=== PATIENT | male | born 1985 | race Caucasian/White ===

== ENCOUNTER 2023-03-19 12:17 | Outpatient (CLI) | payer BC, SELFPAY ==
--- NOTE | ~2023-03-19 | US_ITS ---
EXAMINATION: US FNA w image guidance DATE: 03/19/2023 13:06 INDICATION: Nontoxic single thyroid nodule TECHNIQUE: A time-out was performed to verify the patient's name, date of , and procedure to be performed . The procedure and its benefits and risks were discussed with the patient. Risks specifically discus sed included bleeding and infection. The patient understood the risks and agreed to proceed. The neck was prepped and draped in the usual sterile manner. 3 mL 1% lidocaine was used for local anesthesia . 6 passes were made with a 25G needle into the lesion. Appropriate needle location was documented with continuous sonographic guidance. A sterile bandage was applied. There were no immediate compli cations. FINDINGS: Grayscale ultrasound images demonstrate biopsy needles advanced into a 2.8 cm TI RADS 5 solid very hy poechoic nodule with scattered coarse calcifications and lobular margins with suggestion of extra thy roidal extension which is highly concerning for malignancy. IMPRESSION: 1. Successful ultrasound-guided fine needle aspiration of a 2.8 cm TI RADS 5 right thyroid nodule. A ppearance is highly concerning for malignancy and would strongly recommend rebiopsy should the curren t biopsy proves nondiagnostic. Reviewed, dictated and finalized at location A. [employer] [facility] IMPRESSION: 1. Successful ultrasound-guided fine needle aspiration of a 2.8 cm TI RADS 5 r ight thyroid nodule. Appearance is highly concerning for malignancy and would s trongly recommend rebiopsy should the current biopsy proves nondiagnostic.
== END 2023-03-19 12:18 | disposition home or self-care (01) ==
PROVIDERS: PCP Internal Medicine; Visit Provider Internal Medicine
DX: E04.1 Nontoxic single thyroid nodule (principal)
CPT/HCPCS: 10005; 88173; 88305

== ENCOUNTER 2023-04-17 14:47 | Outpatient (CLI) | payer BC, SELFPAY ==
[2023-04-17 16:16] LABS: Thyroid Stimulating Hormone 0.921 uIU/mL (0.465-4.680)
== END 2023-04-17 14:48 | disposition home or self-care (01) ==
LOC: ANHLAB 14:49
PROVIDERS: PCP Internal Medicine; Visit Provider Internal Medicine
DX: E04.2 Nontoxic multinodular goiter (principal)
CPT/HCPCS: 36415; 84439; 84443